=== PATIENT | male | born 1940 | race Caucasian/White ===

== ENCOUNTER 2017-05-03 15:00 | Inpatient (IN) | payer MEDICARE, OTHER ==
[~2017-05-03] VITALS: Ht 167.6 cm; Wt 72.1 kg
--- NOTE | 2017-05-03 15:30 | NUR ---
Pt is in room 4b and security administrator at bedside for 1:1 observation for safety and due to high elopement risk.
[2017-05-03] MEDS ORDERED: TRAM100T14 PO (15:40)
[2017-05-03] MEDS ORDERED: ACET325C PO (15:40)
[2017-05-03] MEDS ORDERED: SENN-167 PO (15:40)
[2017-05-03] MEDS ORDERED: ATOR40TA PO (15:40)
[2017-05-03] MEDS ORDERED: BISA10SU12 RC (15:40)
[2017-05-03] MEDS ORDERED: AMLO5TAB2 PO (15:40)
[2017-05-03] MEDS ORDERED: MAGN400O6 PO (15:40)
[2017-05-03] MEDS ORDERED: SITA50TA PO (15:40)
[2017-05-03] MEDS ORDERED: TOPI100T PO (15:40)
--- NOTE | 2017-05-03 15:40 | NUR ---
MARIA LUISA Ray took over for ict security specialist and is now at bedside for 1:1 observation.
[2017-05-03 16:54] LABS: BASOPHILS % (AUTO) 0.5 % (0.0-2.0); EOSINOPHILS # (AUTO) 0.1 K/uL (0.0-0.7); EOSINOPHILS % (AUTO) 2.7 % (0.0-7.0); HEMATOCRIT 39.7 % (40-50); HEMOGLOBIN 12.7 G/DL (14.0-18.0); LYMPHOCYTES # (AUTO) 0.8 K/UL (0.8-4.8); LYMPHOCYTES % (AUTO) 14.1 % (20.5-51.5); MEAN CORPUSCULAR HEMOGLOBIN 27.5 UUG (27.0-31.0); MEAN CORPUSCULAR HGB CONC 32 g/dL (32.0-37.0); MONOCYTES # (AUTO) 0.4 K/UL (0.1-1.30); MONOCYTES % (AUTO) 7.7 % (0.0-11.0); PLATELET COUNT (AUTO) 294 K/UL (150-450); RED BLOOD CELL COUNT(AUTO) 4.61 MIL/UL (4.7-6.1); WHITE BLOOD COUNT (AUTO) 5.3 K/UL (4.0-11.2)
[2017-05-03 17:06] LABS: CARBON DIOXIDE 20 mmol/L (21-32); CHLORIDE 109 mmol/L (98-107); CREATININE 1.3 mg/dL (0.6-1.3); GLUCOSE 137 mg/dL (74-106); UREA NITROGEN, BLOOD 20 mg/dL (7-18)
[2017-05-03 17:08] LABS: ETHANOL < 3 MG/DL (0-0)
[2017-05-03 17:10] LABS: *BILIRUBIN,URIN NEGATIVE (NEGATIVE); *BLOOD, URINE NEGATIVE (NEGATIVE); *CLARITY,URINE CLEAR (CLEAR); *COLOR,URINE YELLOW (YELLOW); *KETONES,URINE NEGATIVE (NEGATIVE); *PROTEIN,URINE 2+ (NEGATIVE); *UROBILINOGEN,URINE 0.2 E.U./dl (NORMAL); LEUKOCYTE ESTERASE ,URINE NEGATIVE (NEGATIVE); NITRITE, URINE NEGATIVE (NEGATIVE); UGLUCOSE NEGATIVE (NEGATIVE)
[2017-05-03 17:12] LABS: ALANINE AMINOTRANSFERASE 21 U/L (16-63); ALKALINE PHOSPHATASE 74 U/L (50-136); ASPARTATE AMINOTRANSFERASE 14 U/L (15-37); BILIRUBIN,DIRECT 0.1 mg/dL (0.0-0.2); BILIRUBIN,TOTAL 0.2 mg/dL (0.2-1.0); TOTAL PROTEIN, SERUM 6.8 g/dL (6.4-8.2)
[2017-05-03 17:15] LABS: ACETAMINOPHEN < 2.0 ug/mL (10-30)
--- NOTE | 2017-05-03 17:15 | NUR ---
Pt placed on 5150 hold (GD) by Joselito Davila.
[2017-05-03 17:23] LABS: *AMPHETAMINE, URINE NEGATIVE (NEGATIVE); *BARBITURATE, URINE NEGATIVE (NEGATIVE); *CANNABINOID, URINE NEGATIVE (NEGATIVE); *COCCAINE, URINE NEGATIVE (NEGATIVE); *OPIATE, URINE NEGATIVE (NEGATIVE); *PHENCYCLIDINE SCREEN,URINE NEGATIVE (NEGATIVE)
[2017-05-03 17:29] LABS: MUCUS,URINE MANY /LPF (0-FEW); RBC,URINE 0-3 /HPF (0-3); WBC,URINE 0-3 /HPF (0-3)
[2017-05-03 17:36] LABS: THYROID STIMULATING HORMONE 2.727 mIU/mL (0.358-3.740)
--- NOTE | 2017-05-03 17:45 | NUR ---
SBAR report given to Ayanna WAGNER.
--- NOTE | 2017-05-03 17:56 | NUR ---
Per Dr. Mcnally pt is medically clear and may be trans to MHU.
--- NOTE | 2017-05-03 18:12 | NUR ---
Pt trans to MHU, NAD noted.
[2017-05-03] MEDS ORDERED: MAG HYDROX/AL HYDROX/SIMETH 30 ML LIQUID UDC PO PRN (18:15)
[2017-05-03] MEDS ORDERED: ACETAMINOPHEN 325 MG TABLET PO PRN (18:15)
[2017-05-03] MEDS ORDERED: LORAZEPAM 0.5 MG TABLET PO PRN ×2 (18:15→19:15)
[2017-05-03] MEDS ORDERED: MAGNESIUM HYDROXIDE 30 ML LIQUID UDC PO PRN (18:15)
[2017-05-03] MEDS ORDERED: SITAGLIPTIN PHOSPHATE 50 MG TABLET PO SCH (18:45)
[2017-05-03] MEDS ORDERED: Medication Not On Formulary EA (Acetaminophen 650 MG) PO PRN (18:45)
[2017-05-03] MEDS ORDERED: BISACODYL 10 MG SUPP.RECT RC PRN (18:45)
[2017-05-03] MEDS ORDERED: OLANZAPINE 10 MG VIAL IM STA (19:16)
--- NOTE | 2017-05-03 19:20 | NUR ---
GPS: Received pt. sitting up on a larisa-chair at this time. Less agitated,more cooperative and able to be re-directed by this chart writer. Zyprexa 5mg IM ordered earlier not given due to pt. much more calmer and re-directable. Will monitor behavior. Safety emphasized. Chg.nurse aware that Zyprexa 5mg IM not given due to present behavior.
[2017-05-03] MEDS: AMLODIPINE 5 MG TABLET PO SCH (19:42)
[2017-05-03] MEDS: TRAMADOL HCL 50 MG TABLET PO PRN (19:44)
[2017-05-03] MEDS: ATORVASTATIN 40 MG TABLET PO SCH (20:03)
[2017-05-03] MEDS: SENNOSIDES 1 TABLET PO SCH (20:03)
[2017-05-03 20:50] VITALS: BP 145/81
[2017-05-03] MEDS ORDERED: TOPIRAMATE 100 MG TABLET PO SCH (21:00)
[2017-05-04 07:30] VITALS: BP 119/76
[2017-05-04] MEDS: AMLODIPINE 5 MG TABLET PO SCH (08:27)
[2017-05-04] MEDS: LINAGLIPTIN 5 MG TABLET PO SCH (08:28)
[2017-05-04 15:00] VITALS: BP 126/77
[2017-05-04 20:00] VITALS: BP 120/80
[2017-05-04] MEDS: DIVALPROEX SPRINKLE 125 MG CAP.SPRINK PO SCH (20:44)
[2017-05-04] MEDS: ATORVASTATIN 40 MG TABLET PO SCH (20:44)
[2017-05-04] MEDS: SENNOSIDES 1 TABLET PO SCH (20:45)
[2017-05-04] MEDS: TRAMADOL HCL 50 MG TABLET PO PRN (22:48)
--- NOTE | 2017-05-04 23:51 | NUR ---
RECEIVED PATIENT LAYING IN BED, IRRITABLE WITH SOME AGGRESSIVE BEHAVIOR AT THE BEGINNING BUT COOPERATIVE WITH MEDS. VITAL SIGNS WITHIN NORMAL LIMITS. COMPLAIN OF SHOULDER PAIN 7/10 GIVEN ULTRAM ORDERED. OTHERWISE PATIENT IS SLEEPING AT THIS TIME. MAINTAINED ON SAFETY.
--- NOTE | 2017-05-05 05:16 | NUR ---
PATIENT SLEPT INTERMITTENTLY THROUGH THE NIGHT FREQUENTLY ASKING FOR WATER IN A MANIPULATIVE MANNER. HE MISBEHAVED LAST NIGHT SHOWING HIS GENITALS TO THE STAFF. OTHERWISE HE IS MEDICALLY STABLE NO DISTRESS NOTED. KEPT SAFE.
[2017-05-05 07:51] VITALS: BP 135/84
[2017-05-05] MEDS: ESCITALOPRAM OXALATE 10 MG TABLET PO SCH (08:28)
[2017-05-05] MEDS: LINAGLIPTIN 5 MG TABLET PO SCH (08:28)
[2017-05-05] MEDS: AMLODIPINE 5 MG TABLET PO SCH (08:29)
[2017-05-05] MEDS: DIVALPROEX SPRINKLE 125 MG CAP.SPRINK PO SCH ×2 (08:30→21:06)
[2017-05-05 16:45] VITALS: BP 130/86
[2017-05-05 20:20] VITALS: BP 138/81
[2017-05-05] MEDS: SENNOSIDES 1 TABLET PO SCH (21:00)
[2017-05-05] MEDS: TRAMADOL HCL 50 MG TABLET PO PRN (21:05)
[2017-05-05] MEDS: ATORVASTATIN 40 MG TABLET PO SCH (21:06)
[2017-05-06 07:30] VITALS: BP 134/87
[2017-05-06] MEDS: ESCITALOPRAM OXALATE 10 MG TABLET PO SCH (08:32)
[2017-05-06] MEDS: DIVALPROEX SPRINKLE 125 MG CAP.SPRINK PO SCH ×2 (08:32→20:43)
[2017-05-06] MEDS: AMLODIPINE 5 MG TABLET PO SCH (08:33)
[2017-05-06] MEDS: LINAGLIPTIN 5 MG TABLET PO SCH (08:33)
[2017-05-06] MEDS: TRAMADOL HCL 50 MG TABLET PO PRN ×2 (08:50→20:43)
--- NOTE | 2017-05-06 12:02 | NUR ---
Initial discharge instructions: Pt resides at [facility] [[address],[address];[phone]].Pt has no family/next of kin to contact.Per pt,he would like to return to the facility once discharge.Spoke with Sujata at the facility who stated they would accept the pt back once stable.SW will speak with pt and MD regarding appropriate discharge plans.SW will form a safe and proper discharge.
--- NOTE | 2017-05-06 12:30 | NUR ---
PATIENT SEEN AND EXAMINED BY DR MINER PATIENT IS NOW PLACED ON VOLUNTARY STATUS.
[2017-05-06 16:52] VITALS: BP 130/75
--- NOTE | 2017-05-06 19:30 | NUR ---
PT IN ROOM SUPINE AND IN NO ACUTE DISTRESS. REPORTING PAIN 10/10 TO RIGHT SHOULDER. REQUIRES ASSISTANCE TO REPOSITION IN BED. REFUSES TO TAKE SENNEKOT AND ATORVASTATIN ROUTINE HS MEDICATION AT THIS TIME. CONTINUE TO MONIOTOR FOR ANY SIGNIFICANT CHANGES. V/S ARE WNL
[2017-05-06 20:19] VITALS: BP 121/80
[2017-05-06] MEDS: ATORVASTATIN 40 MG TABLET PO SCH (20:53)
[2017-05-06] MEDS: SENNOSIDES 1 TABLET PO SCH (20:53)
--- NOTE | 2017-05-07 01:00 | NUR ---
Pt asleep in room. Ultram 50mg PO effective. No acute distress or discomfort noted at this time. Continue to monitor for pain management and significant changes.
--- NOTE | 2017-05-07 06:00 | NUR ---
Pt up OOB and able to shower. No s/s of agitation or combative behavior. Able to follow simple commands. 9 hrs of sleep noted with current weight 159 lbs. No acute distress at this time. Distracting techniques successful for non pharmacologic pain interventions. Continue to monitor.
[2017-05-07 07:44] VITALS: BP 132/81
[2017-05-07] MEDS: ESCITALOPRAM OXALATE 10 MG TABLET PO SCH (08:33)
[2017-05-07] MEDS: LINAGLIPTIN 5 MG TABLET PO SCH (08:33)
[2017-05-07] MEDS: NICOTINE 21 MG/24HR PATCH TD SCH (08:33)
[2017-05-07] MEDS: DIVALPROEX SPRINKLE 125 MG CAP.SPRINK PO SCH ×2 (08:33→20:14)
[2017-05-07] MEDS: AMLODIPINE 5 MG TABLET PO SCH (08:34)
[2017-05-07] MEDS: TRAMADOL HCL 50 MG TABLET PO PRN (14:40)
--- NOTE | 2017-05-07 14:42 | NUR ---
MEDICATED FOR C/O GENERALISED PAIN AND DISCOMFORTS ORDERED AND WILL OBSERVE.
[2017-05-07 16:13] VITALS: BP 133/72
[2017-05-07 20:00] VITALS: BP 131/78
[2017-05-07] MEDS: SENNOSIDES 1 TABLET PO SCH (20:14)
[2017-05-07] MEDS: ATORVASTATIN 40 MG TABLET PO SCH (20:20)
[2017-05-08] MEDS: ZOLPIDEM 5 MG TABLET PO PRN ×2 (01:15→20:50)
--- NOTE | 2017-05-08 01:16 | NUR ---
Patient noted restless in his bed, he also stated that "there are bugs in my legs. Patient was reassured and lotion was applied in both legs. Ambien 5mg PO PRN for insomnia was offered. Pt accepted and was given at this time. will reassess in one hour. will continue to monitor.
--- NOTE | 2017-05-08 06:58 | NUR ---
Patient slept for approx 6 hrs through the night.
[2017-05-08 07:30] VITALS: BP 163/99
[2017-05-08] MEDS: ESCITALOPRAM OXALATE 10 MG TABLET PO SCH (08:44)
[2017-05-08] MEDS: DIVALPROEX SPRINKLE 125 MG CAP.SPRINK PO SCH ×3 (08:44→16:32)
[2017-05-08] MEDS: AMLODIPINE 5 MG TABLET PO SCH (08:44)
[2017-05-08] MEDS: LINAGLIPTIN 5 MG TABLET PO SCH (08:46)
[2017-05-08] MEDS: TRAMADOL HCL 50 MG TABLET PO PRN ×2 (08:50→20:06)
[2017-05-08] MEDS: NICOTINE 21 MG/24HR PATCH TD SCH (08:54)
--- NOTE | 2017-05-08 09:00 | NUR ---
Pt received in bed AOx3. Cooperative and compliant with medications this am. Hyperverbal at times. No acute distress noted. Will continue to monitor for safety.
[2017-05-08 16:00] VITALS: BP 128/81
--- NOTE | 2017-05-08 17:16 | NUR ---
Pt observed in day room for most of day, nut at times in bed needy and hyperverbal, otherwise pt compliant with medications. No acute distress noted.
[2017-05-08 19:58] VITALS: BP 124/80
[2017-05-08] MEDS: ATORVASTATIN 40 MG TABLET PO SCH (20:06)
[2017-05-08] MEDS: SENNOSIDES 1 TABLET PO SCH (20:06)
[2017-05-09] MEDS: TRAMADOL HCL 50 MG TABLET PO PRN ×2 (06:59→12:36)
[2017-05-09 07:30] VITALS: BP 111/76
[2017-05-09] MEDS: AMLODIPINE 5 MG TABLET PO SCH (08:45)
[2017-05-09] MEDS: NICOTINE 21 MG/24HR PATCH TD SCH (08:45)
[2017-05-09] MEDS: LINAGLIPTIN 5 MG TABLET PO SCH ×2 (08:45→09:00)
[2017-05-09] MEDS: ESCITALOPRAM OXALATE 10 MG TABLET PO SCH (08:46)
[2017-05-09] MEDS: DIVALPROEX SPRINKLE 125 MG CAP.SPRINK PO SCH ×3 (08:47→17:12)
[2017-05-09 16:00] VITALS: BP 105/66
[2017-05-09 20:00] VITALS: BP 148/72
[2017-05-09] MEDS: SENNOSIDES 1 TABLET PO SCH (20:25)
[2017-05-09] MEDS: ATORVASTATIN 40 MG TABLET PO SCH (20:25)
[2017-05-09] MEDS: ZOLPIDEM 5 MG TABLET PO PRN (23:07)
[2017-05-10 07:30] VITALS: BP 117/68
[2017-05-10 09:00] VITALS: BP 117/68
[2017-05-10] MEDS: LINAGLIPTIN 5 MG TABLET PO SCH (09:00)
[2017-05-10] MEDS: ESCITALOPRAM OXALATE 10 MG TABLET PO SCH (09:00)
[2017-05-10] MEDS: NICOTINE 21 MG/24HR PATCH TD SCH (09:00)
[2017-05-10] MEDS: DIVALPROEX SPRINKLE 125 MG CAP.SPRINK PO SCH ×2 (09:00→13:00)
[2017-05-10] MEDS: AMLODIPINE 5 MG TABLET PO SCH (09:00)
--- NOTE | 2017-05-10 09:06 | NUR ---
DC Note: Patient will be discharged to [facility] [[address], [place] [address]; [phone]] via private transportation at 2:00 pm. Patient will be picked up by the facilities transportation service. Spoke with Sujata at the facility who stated they would accept the patient today. Patient has no family/next of kin to contact. Patient is aware and agreeable with discharge plans as well. Patient will follow-up with (Psychiatrist) and (Tree Farmer) at the facility. Patient was provided with a brief substance abuse intervention and referred to [facility] [phone], [email or web address]. [phone], and [facility] [phone].
[2017-05-10] MEDS: TRAMADOL HCL 50 MG TABLET PO PRN (10:16)
--- NOTE | 2017-05-10 13:33 | NUR ---
REPORT CALLED TO ADEOLA JUAN AND SPOKE TO KIERRA RN OPERATIONAL INTELLIGENCE ANALYST, at 1300 . pt scheduled to be picked up at 1400 by facility staff.
--- NOTE | 2017-05-10 16:33 | NUR ---
PATIENT DISCHARGED AT 16 15 VIA PRIVATE TRANSPORTATION VIA WHEEL CHAIR IN NO ACUTE DISRESS ABLE TO MAKE NEEDS KNOWN. PT RECEIVED D/C INSTRUCTIONS WITH FULL UNDERSTANDING STATED BY PATIENT. PATIENT LEFT WITH ALL BELONGINGS, TELEPHONE, HEAD SET.
== END 2017-05-10 16:15 | DRG 885 ==
LOC: ER 15:01 → GPS 17:54
PROVIDERS: ADMIT Psychiatry & Neurology Psychiatry; ATTEND Internal Medicine
DX: F31.64 Bipolar disorder, current episode mixed, severe, with psychotic features (principal); N18.3 Chronic kidney disease, stage 3 (moderate); E11.22 Type 2 diabetes mellitus with diabetic chronic kidney disease; D63.8 Anemia in other chronic diseases classified elsewhere; I12.9 Hypertensive chronic kidney disease with stage 1 through stage 4 chronic kidney disease, or unspecified chronic kidney disease; E78.5 Hyperlipidemia, unspecified; F17.210 Nicotine dependence, cigarettes, uncomplicated; Z86.73 Personal history of transient ischemic attack (TIA), and cerebral infarction without residual deficits; Z85.51 Personal history of malignant neoplasm of bladder; Z79.899 Other long term (current) drug therapy; F29 Unspecified psychosis not due to a substance or known physiological condition; F15.10 Other stimulant abuse, uncomplicated; F10.10 Alcohol abuse, uncomplicated; G89.29 Other chronic pain
CPT/HCPCS: 36415; 70030-TC; 70450; 71010; 80164; 80307; 83605; 84443; 85025; 85730; 87040; 87086; 93005; 97116; 97530; A4663; G0480; G0480-TC

== ENCOUNTER 2017-08-28 21:07 | Inpatient (IN) | payer MEDICARE, OTHER ==
[~2017-08-28] VITALS: Ht 167.6 cm; Wt 75.7 kg
[~2017-08-28 21:07] MED LIST: ACET325C PO; AMLO5TAB2 PO; ATOR40TA PO; BISA10SU12 RC; MAGN400O6 PO; SENN-167 PO; SITA50TA PO; TOPI100T PO; TRAM100T14 PO
[2017-08-28] MEDS ORDERED: BLOO-360 IN (23:28)
[2017-08-28] MEDS ORDERED: LINA5TAB PO (23:28)
[2017-08-28] MEDS ORDERED: GLUC1KIT IM (23:28)
[2017-08-28] MEDS ORDERED: HYDR-3326 PO (23:28)
[2017-08-28] MEDS ORDERED: ESCI5TAB PO (23:28)
[2017-08-28] MEDS ORDERED: DIVA500T2 PO (23:28)
[2017-08-29 00:28] LABS: BASOPHILS % (AUTO) 0.5 % (0.0-2.0); EOSINOPHILS # (AUTO) 0.1 K/uL (0.0-0.7); EOSINOPHILS % (AUTO) 1.8 % (0.0-7.0); HEMATOCRIT 39.3 % (36.7-47.1); HEMOGLOBIN 13.2 g/dL (12.5-16.3); LYMPHOCYTES # (AUTO) 0.9 K/uL (20.0-40.0); MEAN CORPUSCULAR HEMOGLOBIN 28.1 uug (23.8-33.4); MEAN CORPUSCULAR HGB CONC 34 g/dL (32.5-36.3); MEAN CORPUSCULAR VOLUME 84.1 fL (73.0-96.2); MONOCYTES # (AUTO) 0.8 K/uL (2.0-10.0); MONOCYTES % (AUTO) 10.4 % (0.0-11.0); NEUTROPHILS # (AUTO) 5.9 K/uL (1.8-8.9); NEUTROPHILS % (AUTO) 75.3 % (38.5-71.5); PLATELET COUNT (AUTO) 219 K/uL (152-348); RED BLOOD CELL COUNT(AUTO) 4.68 MIL/uL (4.06-5.63); WHITE BLOOD COUNT (AUTO) 7.8 K/uL (3.6-10.2)
[2017-08-29 00:44] LABS: ETHANOL < 3 MG/DL (0-0)
[2017-08-29] MEDS ORDERED: TRAMADOL HCL 50 MG TABLET PO ONE (00:45)
[2017-08-29 01:02] LABS: *BILIRUBIN,URIN NEGATIVE (NEGATIVE); *BLOOD, URINE 1+ (NEGATIVE); *CLARITY,URINE CLEAR (CLEAR); *COLOR,URINE YELLOW (YELLOW); *KETONES,URINE NEGATIVE (NEGATIVE); *UROBILINOGEN,URINE 0.2 E.U./dl (NORMAL); LEUKOCYTE ESTERASE ,URINE NEGATIVE (NEGATIVE); NITRITE, URINE NEGATIVE (NEGATIVE); PH,URINE 5.5 (5.0-8.0); UGLUCOSE NEGATIVE (NEGATIVE)
[2017-08-29] MEDS ORDERED: TRAMADOL HCL 50 MG TABLET ONE (01:03)
[2017-08-29 01:06] LABS: *PROTEIN,URINE 3+ (NEGATIVE)
[2017-08-29 01:10] LABS: THYROID STIMULATING HORMONE 4.925 mIU/mL (0.358-3.740)
[2017-08-29 01:19] LABS: *AMPHETAMINE, URINE NEGATIVE (NEGATIVE); *BARBITURATE, URINE NEGATIVE (NEGATIVE); *CANNABINOID, URINE NEGATIVE (NEGATIVE); *COCCAINE, URINE NEGATIVE (NEGATIVE); *OPIATE, URINE NEGATIVE (NEGATIVE); *PHENCYCLIDINE SCREEN,URINE NEGATIVE (NEGATIVE)
[2017-08-29 01:55] LABS: BACTERIA,URINE NONE SEEN /HPF (NONE SEEN); RBC,URINE 0-3 /HPF (0-3); SQUAMOUS EPITHELIAL CELL,UR FEW /HPF (NONE SEEN); WBC,URINE 0-3 /HPF (0-3)
[2017-08-29 02:32] LABS: CARBON DIOXIDE 27 mmol/L (21-32); CHLORIDE 106 mmol/L (98-107); CREATININE 1.4 mg/dL (0.6-1.3); GLUCOSE 104 mg/dL (74-106); POTASSIUM 4.3 mmol/L (3.5-5.1); UREA NITROGEN, BLOOD 26 mg/dL (7-18)
[2017-08-29 02:37] LABS: ACETAMINOPHEN < 2.0 ug/mL (10-30); ALANINE AMINOTRANSFERASE 23 U/L (16-63); ALKALINE PHOSPHATASE 66 U/L (50-136); ASPARTATE AMINOTRANSFERASE 15 U/L (15-37); BILIRUBIN,DIRECT 0.1 mg/dL (0.0-0.2); BILIRUBIN,TOTAL 0.4 mg/dL (0.2-1.0)
--- NOTE | 2017-08-29 03:05 | NUR ---
Call placed to Greta Walker LCSW, for PET evaluation.
--- NOTE | 2017-08-29 04:00 | NUR ---
Eh Li LCSW, at bedside for PET evaluation.
[2017-08-29 05:00] VITALS: BP 146/82
[2017-08-29] MEDS ORDERED: MAG HYDROX/AL HYDROX/SIMETH 30 ML LIQUID UDC PO PRN (05:00)
[2017-08-29] MEDS ORDERED: CLONAZEPAM 0.5 MG TABLET PO PRN (05:00)
[2017-08-29] MEDS ORDERED: MAGNESIUM HYDROXIDE 30 ML LIQUID UDC PO PRN (05:00)
[2017-08-29] MEDS ORDERED: ACETAMINOPHEN 325 MG TABLET PO PRN (05:00)
[2017-08-29 05:24] VITALS: BP 166/93
--- NOTE | 2017-08-29 06:15 | NUR ---
received to care, at 0445, from the emergency room, on a 72 hour hold for grave disability, a resident of [facility]. according to the chart, he was refusing care, and being sexually inappropriate, with residents. upon arrival, he was cooperative, but disorganized in his thoughts. stated he was here because his facility "overbooked their patients", and had no room for him. when told of his previously reported behaviors, he denied it. he was cooperative with admission, but continued to be disorganized, and needed frequent redirection, as he became distracted, very easily. he was assisted with a shower at 0545, placed in bed, and , as of 0615, appears to falling asleep. no distress noted. will continue to monitor closely.
[2017-08-29 07:30] VITALS: BP 137/73
--- NOTE | 2017-08-29 08:15 | NUR ---
PATIENT IS IN HIS BED EATING BREAKFAST AT THIS TIME HE IS ALERT AND VERBALLY RESPONSIVE STATED VERY TIRED AND WANTS TO SLEEP IN AT THIS TIME.WILL CONTINUE TO PROVIDE SAFE AND THERAPEUTIC ENVIRONMENT AT ALL TIMES.
[2017-08-29] MEDS: NICOTINE 14 MG/24HR PATCH TD SCH (09:01)
[2017-08-29] MEDS ORDERED: BISACODYL 10 MG SUPP.RECT RC PRN (11:30)
[2017-08-29] MEDS ORDERED: SITAGLIPTIN PHOSPHATE 50 MG TABLET PO SCH (11:30)
[2017-08-29] MEDS ORDERED: TRAMADOL HCL 50 MG TABLET PO PRN (11:30)
--- NOTE | 2017-08-29 12:04 | NUR ---
UP AND AMBULATED WITH THE FRONT WHEEL WALKER WITH THE PHYSICAL THERAPY WITH LEFT SIDED WEAKNESS .
[2017-08-29] MEDS: LINAGLIPTIN 5 MG TABLET PO SCH (12:48)
[2017-08-29] MEDS: AMLODIPINE 5 MG TABLET PO SCH (12:49)
--- NOTE | 2017-08-29 14:45 | NUR ---
DR HUBBARD HERE AND SEEN PATIENT WITH NEW ORDERS AND NOTED.
[2017-08-29 15:00] VITALS: BP 145/83
--- NOTE | 2017-08-29 15:53 | NUR ---
PATIENT ASSISTED TO THE BATHROOM AMBULATED HAND HELD WITH LEFT SIDED WEAKNESS PATIENT MOVED HIS BOWEL AND ASSISTED BACK INTO BED FIXED AND MADE COMFORTABLE.
[2017-08-29] MEDS: DIVALPROEX 500 MG TABLET.DR PO SCH ×2 (16:02→20:09)
[2017-08-29] MEDS: ESCITALOPRAM OXALATE 10 MG TABLET PO SCH (16:02)
--- NOTE | 2017-08-29 18:00 | NUR ---
RESTING IN BED COMPLIANT WITH MEDICATIONS AND CARE WILL CONTINUE TO OBSERVE
[2017-08-29 20:00] VITALS: BP 141/83
[2017-08-29] MEDS: TOPIRAMATE 100 MG TABLET PO SCH (20:09)
[2017-08-29] MEDS: ATORVASTATIN 40 MG TABLET PO SCH (20:15)
[2017-08-29] MEDS: SENNOSIDES 1 TABLET PO SCH (20:16)
--- NOTE | 2017-08-29 22:00 | NUR ---
received to care, lying in bed, pleasant upon approach. was selective with some of his meds, but took all psychotropics. as of 2199, he appears to be asleep. no distress noted. will continue to monitor closely.
--- NOTE | 2017-08-30 06:00 | NUR ---
slept 10.0 hours, total. continues to sleep. no distress noted.
[2017-08-30 07:30] VITALS: BP 140/92
[2017-08-30] MEDS: NICOTINE 14 MG/24HR PATCH TD SCH (09:00)
[2017-08-30] MEDS: DIVALPROEX 500 MG TABLET.DR PO SCH ×2 (09:10→20:04)
[2017-08-30] MEDS: ESCITALOPRAM OXALATE 10 MG TABLET PO SCH (09:10)
[2017-08-30] MEDS: LINAGLIPTIN 5 MG TABLET PO SCH (09:10)
[2017-08-30] MEDS: AMLODIPINE 5 MG TABLET PO SCH (09:11)
[2017-08-30 15:00] VITALS: BP 110/59
--- NOTE | 2017-08-30 15:25 | NUR ---
Initial DC Plan: Patient currently resides at [facility] [[address], [place] [address]; ]. ANNE spoke with Sujata at [facility] who stated they are currently trying to find board and care placement for patient. ANNE will follow up with MD, patient, and patient's son Preet [[phone]] to discuss most appropriate discharge plans. SW will form a safe and proper discharge.
[2017-08-30] MEDS: TOPIRAMATE 100 MG TABLET PO SCH (20:03)
[2017-08-30] MEDS: ATORVASTATIN 40 MG TABLET PO SCH (20:04)
[2017-08-30] MEDS: SENNOSIDES 1 TABLET PO SCH (20:04)
[2017-08-30 20:23] VITALS: BP 136/95
[2017-08-31 07:30] VITALS: BP 159/99
[2017-08-31] MEDS: DIVALPROEX 500 MG TABLET.DR PO SCH ×2 (08:36→20:21)
[2017-08-31] MEDS: ESCITALOPRAM OXALATE 10 MG TABLET PO SCH (08:36)
[2017-08-31] MEDS: NICOTINE 14 MG/24HR PATCH TD SCH (08:37)
[2017-08-31] MEDS: LINAGLIPTIN 5 MG TABLET PO SCH (08:37)
[2017-08-31] MEDS: AMLODIPINE 5 MG TABLET PO SCH (08:37)
[2017-08-31 15:31] VITALS: BP 144/86
--- NOTE | 2017-08-31 17:00 | NUR ---
Gps/Supervising Floorperson- Assisted back to bed min/mod.assist, poor standing balance. Denies any discomfort at this time.Stayed in bed for dinner.
[2017-08-31] MEDS: TOPIRAMATE 100 MG TABLET PO SCH (20:21)
[2017-08-31] MEDS: ATORVASTATIN 40 MG TABLET PO SCH (20:26)
[2017-08-31] MEDS: SENNOSIDES 1 TABLET PO SCH (20:26)
[2017-08-31 20:59] VITALS: BP 117/72
[2017-08-31] MEDS: TEMAZEPAM 7.5 MG CAPSULE PO PRN (22:05)
--- NOTE | 2017-08-31 22:31 | NUR ---
RECEIVED Pt LYING IN BED AWAKE. A+Ox3, GIVES LIMITED DISCLOSURE ON REASON FOR ADMISSION, POOR INSIGHT INTO MENTAL CONDITION. SELECTIVE WITH MEDS, Pt REFUSED SENOKOT AND LIPITOR, STATING, "MY CHOLESTEROL IS NOT HIGH, AND I POOP EVERYDAY". Pt BECAME ARGUMENTATIVE WHEN TOLD HIS LIPIDS WERE, HIGH, THEN Pt WAS IMMEDIATELY REDIRECTED. Pt IS GUARDED WITH PERSONAL INFORMATION AND APPEARS INTERNALLY PREOCCUPIED AND THOUGHT BLOCKING. EXHIBITS PRESSURED SPEECH AND RESTRICTED AFFECT. Pt REQUESTED SLEEP MED, WHEN RN RETURNED WITH MED, Pt BECAME SEXUALLY INAPPROPRIATE AND ASKED, "HOW DO YOU FELL ABOUT SEX?", Pt WAS TOLD THAT HE WAS INAPPROPRIATE AND REDIRECTED, Pt SUBSEQUENTLY APOLOGIZED. DENIES PAIN, VS STABLE.
[2017-09-01 07:30] VITALS: BP 133/84
[2017-09-01] MEDS: DIVALPROEX 500 MG TABLET.DR PO SCH ×2 (08:39→21:13)
[2017-09-01] MEDS: LINAGLIPTIN 5 MG TABLET PO SCH (08:39)
[2017-09-01] MEDS: ESCITALOPRAM OXALATE 10 MG TABLET PO SCH (08:40)
[2017-09-01] MEDS: AMLODIPINE 5 MG TABLET PO SCH (08:40)
[2017-09-01] MEDS: NICOTINE 14 MG/24HR PATCH TD SCH (08:45)
[2017-09-01 15:38] VITALS: BP 139/83
--- NOTE | 2017-09-01 17:30 | NUR ---
Gps/Statistical Financial Analyst- Stayed in his room in bed during dinner, no inappropriate sexual remarks noted. Adequate fluid intake, denies pain, safety reviewed emphasized. Had one diarrhea observed this am. Safety reviewed and emphasized.
[2017-09-01 20:45] VITALS: BP 154/72
[2017-09-01] MEDS: SENNOSIDES 1 TABLET PO SCH (21:00)
[2017-09-01] MEDS: ATORVASTATIN 40 MG TABLET PO SCH (21:00)
[2017-09-01] MEDS: TOPIRAMATE 100 MG TABLET PO SCH (21:13)
--- NOTE | 2017-09-02 00:29 | NUR ---
PATIENT RECEIVED IN BED AWAKE. PATIENT ALERT/ORIENTED X2. PATIENT HAS POOR INSIGHT TO CONDITION, POOR JUDGEMENT. PATIENT COMPLAINT WITH MEDICATION. PATIENT SELECTIVE WITH MEDICATION REFUSING SHOLA AND BASILIO EXPLAINED THE IMPORTANCE OF TAKING MEDICATION CONTINUES TO REFUSE. PRESSURED SPEECH NOTED. PATIENT DENIES PAIN AT THIS TIME, WILL CONTINUE TO MONITOR. NO AGGRESSIVE OR COMBATIVE BEHAVIOR NOTED, WILL CONTINUE TO MONITOR. BED IN LOWEST POSITION, BED LOCKED, AND BED ALARM ON WHILE IN BED.
[2017-09-02 07:30] VITALS: BP 128/80
[2017-09-02] MEDS: ESCITALOPRAM OXALATE 10 MG TABLET PO SCH (08:34)
[2017-09-02] MEDS: DIVALPROEX 500 MG TABLET.DR PO SCH ×2 (08:34→20:12)
[2017-09-02] MEDS: AMLODIPINE 5 MG TABLET PO SCH (08:34)
[2017-09-02] MEDS: LINAGLIPTIN 5 MG TABLET PO SCH (08:34)
[2017-09-02] MEDS: NICOTINE 14 MG/24HR PATCH TD SCH (08:34)
[2017-09-02 15:37] VITALS: BP 135/83
[2017-09-02] MEDS: OLANZAPINE 2.5 MG TABLET PO SCH (20:12)
[2017-09-02] MEDS: TOPIRAMATE 100 MG TABLET PO SCH (20:12)
[2017-09-02] MEDS: SENNOSIDES 1 TABLET PO SCH (20:18)
[2017-09-02] MEDS: ATORVASTATIN 40 MG TABLET PO SCH (20:18)
[2017-09-02 20:44] VITALS: BP 146/85
[2017-09-03 07:30] VITALS: BP 118/82
[2017-09-03] MEDS: DIVALPROEX 500 MG TABLET.DR PO SCH ×2 (08:43→20:35)
[2017-09-03] MEDS: AMLODIPINE 5 MG TABLET PO SCH (08:43)
[2017-09-03] MEDS: ESCITALOPRAM OXALATE 10 MG TABLET PO SCH (08:43)
[2017-09-03] MEDS: NICOTINE 14 MG/24HR PATCH TD SCH (08:43)
[2017-09-03] MEDS: LINAGLIPTIN 5 MG TABLET PO SCH (08:44)
[2017-09-03 16:55] VITALS: BP 132/78
[2017-09-03 20:00] VITALS: BP 131/79
[2017-09-03] MEDS: ATORVASTATIN 40 MG TABLET PO SCH (20:34)
[2017-09-03] MEDS: OLANZAPINE 2.5 MG TABLET PO SCH (20:34)
[2017-09-03] MEDS: SENNOSIDES 1 TABLET PO SCH (20:34)
[2017-09-03] MEDS: TOPIRAMATE 100 MG TABLET PO SCH (20:34)
--- NOTE | 2017-09-03 22:00 | NUR ---
received to care, lying in bed, pleasant upon approach, yelling intermittently, for "etta". states that she is his . reality orientation was provided, but he initially believed he was at health system. as of 2199, he remains awake. is aware he is in the hospital. assisted with snack, and diaper change. continues to yell out intermittently, but is more directable. will continue to monitor closely.
[2017-09-03] MEDS: TEMAZEPAM 7.5 MG CAPSULE PO PRN (22:27)
--- NOTE | 2017-09-03 22:27 | NUR ---
remains awake, and restless. PRN restoril was given at this time.
--- NOTE | 2017-09-03 23:10 | NUR ---
appears to be asleep. no distress noted.
[2017-09-04 08:00] VITALS: BP 152/81
[2017-09-04 08:37] LABS: BASOPHILS % (AUTO) 0.6 % (0.0-2.0); EOSINOPHILS # (AUTO) 0.1 K/uL (0.0-0.7); EOSINOPHILS % (AUTO) 2.1 % (0.0-7.0); HEMATOCRIT 43.2 % (36.7-47.1); HEMOGLOBIN 14.2 g/dL (12.5-16.3); LYMPHOCYTES # (AUTO) 0.8 K/uL (20.0-40.0); LYMPHOCYTES % (AUTO) 13.7 % (20.5-51.5); MEAN CORPUSCULAR HGB CONC 33 g/dL (32.5-36.3); MEAN CORPUSCULAR VOLUME 84.8 fL (73.0-96.2); MONOCYTES # (AUTO) 0.7 K/uL (2.0-10.0); MONOCYTES % (AUTO) 11.3 % (0.0-11.0); NEUTROPHILS # (AUTO) 4.4 K/uL (1.8-8.9); NEUTROPHILS % (AUTO) 72.3 % (38.5-71.5); PLATELET COUNT (AUTO) 199 K/uL (152-348); RED BLOOD CELL COUNT(AUTO) 5.09 MIL/uL (4.06-5.63); WHITE BLOOD COUNT (AUTO) 6.1 K/uL (3.6-10.2)
[2017-09-04] MEDS: DIVALPROEX 500 MG TABLET.DR PO SCH ×2 (08:38→20:20)
[2017-09-04] MEDS: ESCITALOPRAM OXALATE 10 MG TABLET PO SCH (08:39)
[2017-09-04] MEDS: NICOTINE 14 MG/24HR PATCH TD SCH (08:39)
[2017-09-04] MEDS: LINAGLIPTIN 5 MG TABLET PO SCH (08:39)
[2017-09-04] MEDS: AMLODIPINE 5 MG TABLET PO SCH (08:39)
[2017-09-04 09:04] LABS: ALANINE AMINOTRANSFERASE 18 U/L (16-63); ALKALINE PHOSPHATASE 64 U/L (50-136); ASPARTATE AMINOTRANSFERASE 16 U/L (15-37); BILIRUBIN,TOTAL 0.4 mg/dL (0.2-1.0); CARBON DIOXIDE 24 mmol/L (21-32); CHLORIDE 105 mmol/L (98-107); CREATININE 1.4 mg/dL (0.6-1.3); GLUCOSE 92 mg/dL (74-106); MAGNESIUM 2.1 mg/dL (1.8-2.4); PHOSPHOROUS 4.1 mg/dL (2.5-4.9); POTASSIUM 3.7 mmol/L (3.5-5.1); TOTAL PROTEIN, SERUM 6.8 g/dL (6.4-8.2); UREA NITROGEN, BLOOD 34 mg/dL (7-18)
[2017-09-04 09:07] LABS: THYROID STIMULATING HORMONE 3.412 mIU/mL (0.358-3.740)
[2017-09-04 16:00] VITALS: BP 112/58
[2017-09-04] MEDS: SENNOSIDES 1 TABLET PO SCH (20:20)
[2017-09-04] MEDS: OLANZAPINE 2.5 MG TABLET PO SCH (20:21)
[2017-09-04] MEDS: ATORVASTATIN 40 MG TABLET PO SCH (20:21)
[2017-09-04] MEDS: TOPIRAMATE 100 MG TABLET PO SCH (20:22)
[2017-09-04 20:39] VITALS: BP 144/90
--- NOTE | 2017-09-04 22:00 | NUR ---
received to care, lying in bed, pleasant upon approach. was selective with some of his meds, but took all psychotropics. stated that he believed that there was a nuclear strike, and he was upset that he was unable to notify the president on twitter, before it happened. he was reassured that there was no attack, and he accepted that. as of 2199, he appears to be asleep. no distress noted. will continue to monitor closely.
[2017-09-05 07:30] VITALS: BP 116/81
[2017-09-05 07:56] LABS: BASOPHILS % (AUTO) 0.7 % (0.0-2.0); EOSINOPHILS # (AUTO) 0.2 K/uL (0.0-0.7); EOSINOPHILS % (AUTO) 2.7 % (0.0-7.0); HEMATOCRIT 43.6 % (36.7-47.1); HEMOGLOBIN 14.6 g/dL (12.5-16.3); LYMPHOCYTES # (AUTO) 0.9 K/uL (20.0-40.0); LYMPHOCYTES % (AUTO) 15.9 % (20.5-51.5); MEAN CORPUSCULAR HEMOGLOBIN 28.3 uug (23.8-33.4); MEAN CORPUSCULAR HGB CONC 33 g/dL (32.5-36.3); MEAN CORPUSCULAR VOLUME 84.9 fL (73.0-96.2); MONOCYTES # (AUTO) 0.7 K/uL (2.0-10.0); MONOCYTES % (AUTO) 11.3 % (0.0-11.0); NEUTROPHILS % (AUTO) 69.4 % (38.5-71.5); PLATELET COUNT (AUTO) 201 K/uL (152-348); RED BLOOD CELL COUNT(AUTO) 5.14 MIL/uL (4.06-5.63); WHITE BLOOD COUNT (AUTO) 5.8 K/uL (3.6-10.2)
[2017-09-05 08:10] LABS: ALANINE AMINOTRANSFERASE 25 U/L (16-63); ALKALINE PHOSPHATASE 65 U/L (50-136); ASPARTATE AMINOTRANSFERASE 12 U/L (15-37); BILIRUBIN,TOTAL 0.4 mg/dL (0.2-1.0); CARBON DIOXIDE 25 mmol/L (21-32); CHLORIDE 109 mmol/L (98-107); CREATINE KINASE, TOTAL 58 U/L (39-308); CREATININE 1.5 mg/dL (0.6-1.3); GLUCOSE 94 mg/dL (74-106); MAGNESIUM 2.1 mg/dL (1.8-2.4); PHOSPHOROUS 3.7 mg/dL (2.5-4.9); POTASSIUM 4.4 mmol/L (3.5-5.1); TOTAL PROTEIN, SERUM 7.2 g/dL (6.4-8.2); UREA NITROGEN, BLOOD 34 mg/dL (7-18)
[2017-09-05] MEDS: NICOTINE 14 MG/24HR PATCH TD SCH (09:00)
[2017-09-05] MEDS: ESCITALOPRAM OXALATE 10 MG TABLET PO SCH (09:01)
[2017-09-05] MEDS: AMLODIPINE 5 MG TABLET PO SCH (09:01)
[2017-09-05] MEDS: DIVALPROEX 500 MG TABLET.DR PO SCH ×2 (09:01→21:09)
[2017-09-05] MEDS: LINAGLIPTIN 5 MG TABLET PO SCH (09:02)
[2017-09-05] MEDS: DOCUSATE SODIUM 100 MG CAPSULE PO SCH ×2 (14:03→21:00)
[2017-09-05 15:19] VITALS: BP 100/62
[2017-09-05] MEDS: ATORVASTATIN 40 MG TABLET PO SCH (21:00)
[2017-09-05] MEDS: SENNOSIDES 1 TABLET PO SCH (21:00)
[2017-09-05] MEDS: TOPIRAMATE 100 MG TABLET PO SCH (21:09)
[2017-09-05] MEDS: OLANZAPINE 2.5 MG TABLET PO SCH (21:09)
[2017-09-05 21:23] VITALS: BP 113/69
--- NOTE | 2017-09-05 22:00 | NUR ---
received to care, lying in bed, pleasant upon approach. was selective with some of his meds, but took all psychotropics. as of 2199, he remains awake, talking to self. no distress noted. will continue to monitor closely.
[2017-09-05] MEDS: TEMAZEPAM 7.5 MG CAPSULE PO PRN (22:28)
--- NOTE | 2017-09-05 22:28 | NUR ---
remains awake. PRN tylenol given for left shoulder pain. PRN restoril given for insomnia. will continue to monitor closely.
--- NOTE | 2017-09-05 23:30 | NUR ---
appears to be asleep. no distress noted.
--- NOTE | 2017-09-06 05:00 | NUR ---
pt is now awake. he has not voided all shift. fluids have been given, several times, over the course of the night. bladder does not appears distended, but is tender to to the touch. pt denies any urge to void. bedside bladder scanner shows 603 ml. exchange for the [email or web address] was called, and they stated they would page the MD retail loss prevention officer.
--- NOTE | 2017-09-06 05:45 | NUR ---
DR FOLEY CALLED BACK WITH ORDER TO INSERT MIRZA CATH.
--- NOTE | 2017-09-06 06:15 | NUR ---
18 fr. indwelling farrell catheter inserted, without any resistance. 600 ml of clear and naima urine was obtained. urine sent to lab per orders. catheter remains patent. no distress noted.
[2017-09-06 07:37] LABS: *BILIRUBIN,URIN NEGATIVE (NEGATIVE); *BLOOD, URINE NEGATIVE (NEGATIVE); *CLARITY,URINE CLEAR (CLEAR); *COLOR,URINE YELLOW (YELLOW); *KETONES,URINE NEGATIVE (NEGATIVE); *PROTEIN,URINE 2+ (NEGATIVE); *UROBILINOGEN,URINE 0.2 E.U./dl (NORMAL); LEUKOCYTE ESTERASE ,URINE NEGATIVE (NEGATIVE); NITRITE, URINE NEGATIVE (NEGATIVE); UGLUCOSE NEGATIVE (NEGATIVE)
[2017-09-06 07:48] LABS: *CREATININE,URINE 138.7 mg/dL (30-125)
[2017-09-06 08:05] LABS: BACTERIA,URINE FEW /HPF (NONE SEEN); RBC,URINE 0-3 /HPF (0-3); SQUAMOUS EPITHELIAL CELL,UR FEW /HPF (NONE SEEN); WBC,URINE 0-3 /HPF (0-3)
[2017-09-06 08:25] VITALS: BP 121/64
[2017-09-06] MEDS: DOCUSATE SODIUM 100 MG CAPSULE PO SCH (08:37)
[2017-09-06] MEDS: LINAGLIPTIN 5 MG TABLET PO SCH (08:37)
[2017-09-06] MEDS: DIVALPROEX 500 MG TABLET.DR PO SCH (08:37)
[2017-09-06] MEDS: AMLODIPINE 5 MG TABLET PO SCH (08:37)
[2017-09-06] MEDS: NICOTINE 14 MG/24HR PATCH TD SCH (08:37)
[2017-09-06] MEDS: ESCITALOPRAM OXALATE 10 MG TABLET PO SCH (08:37)
--- NOTE | 2017-09-06 09:39 | NUR ---
farrell catheter removed by charge nurse
--- NOTE | 2017-09-06 10:27 | NUR ---
DC Note: Patient will be discharged to [facility] [[facility] [place] [address]; ] via private transportation. Transportation will be provided by [employer]. ANNE spoke with Yoav from [employer] [[phone]] who confirmed patient will be picked up between 1:30 and 2:30pm. ANNE spoke with Edd from [facility] who confirmed discharge plans. Patient is aware and agreeable to discharge plans. Patient will follow up with Dr. Rivera (Rehab Tech) and Dr. Ren (Psychiatrist). Patient was provided smoking cessation referrals for [employer] 800-LUNGUSA and [employer] [phone].
--- NOTE | 2017-09-06 13:29 | NUR ---
PT HAD LARGE VOID POST MIRZA CATHETER D/C. CHECKED WITH BLADDER SCANNER, PT HAD 29ML POST VOID RESIDUAL. NO COMPLAINTS AT THIS TIME.
--- NOTE | 2017-09-06 15:00 | NUR ---
pt left unit accompanied by [employer] sales route driver helper and FEDERAL AGENT to vehicle via w/c. Pt calm and cooperative. Compliant with staff. No aggressive or combative behavior noted. Able to make some needs known. v/s stable. Denies pain or discomfort. Left with all noted belongings and paperwork. In no acute distress.
[2017-09-06 15:15] VITALS: BP 113/70
[2017-09-09 05:06] LABS: ALBUMIN 3.3 g/dL (2.9-4.4); ALPHA-1-GLOBULIN 0.2 g/dL (0.0-0.4); ALPHA-2-GLOBULIN 1.1 g/dL (0.4-1.0); GAMMA GLOBULIN 0.9 g/dL (0.4-1.8); GLOBULIN, TOTAL 3.2 g/dL (2.2-3.9); M-SPIKE Not Observed g/dL (Not Observed)
== END 2017-09-06 15:00 | DRG 885 ==
LOC: ER 21:08 → GPS 08-29 04:21
PROVIDERS: ADMIT Psychiatry & Neurology Psychiatry; ATTEND Internal Medicine
DX: F31.64 Bipolar disorder, current episode mixed, severe, with psychotic features (principal); N17.0 Acute kidney failure with tubular necrosis; N18.3 Chronic kidney disease, stage 3 (moderate); E11.22 Type 2 diabetes mellitus with diabetic chronic kidney disease; I12.9 Hypertensive chronic kidney disease with stage 1 through stage 4 chronic kidney disease, or unspecified chronic kidney disease; F15.11 Other stimulant abuse, in remission; F10.11 Alcohol abuse, in remission; Z79.84 Long term (current) use of oral hypoglycemic drugs; Z85.51 Personal history of malignant neoplasm of bladder; Z88.8 Allergy status to other drugs, medicaments and biological substances; G89.29 Other chronic pain; Z87.81 Personal history of (healed) traumatic fracture; Z91.81 History of falling; E78.5 Hyperlipidemia, unspecified; Z79.899 Other long term (current) drug therapy; M54.10 Radiculopathy, site unspecified; E03.9 Hypothyroidism, unspecified; D64.9 Anemia, unspecified; F17.210 Nicotine dependence, cigarettes, uncomplicated; M25.512 Pain in left shoulder; Z86.73 Personal history of transient ischemic attack (TIA), and cerebral infarction without residual deficits; F41.9 Anxiety disorder, unspecified; N32.89 Other specified disorders of bladder
CPT/HCPCS: 36415; 71045; 73030; 76770; 80164; 80307; 83735; 83970; 84100; 84155; 84156; 84165; 84300; 84443; 85025; 85730; 93005; 97110; 97116; 97530; A4663; G0480; G0480-TC